=== PATIENT | male | born 1945 | race Caucasian/White ===

== ENCOUNTER → 2016-12-28 | Day surgery (SDC) | payer MEDICARE, OTHER ==
[~2016-12-28] MED LIST: ASPI81TA82 PO; BUPIVACAINE HCL PF 0.75% 10 ML VIAL ONE; LIDOCAINE 1%/EPINEPHrine 1:100,000 SOLN 20 ML VIAL ONE; PRED20 PO; TRIAMCINOLONE ACETONIDE 40 MG/ML VIAL ONE; VIBR100C PO
--- NOTE | 2016-12-28 15:53 | RADRPT ---
EXAM DATE/TIME: 12/28/2016 14:38 INDICATIONS : Sciatica. ACCESS LEVEL: LEFT Piriformis muscle MEDICATION(S): 1.) 30 mg trimcinolone (Kenalog) IM 2.) <<4 ml bupivacaine (Marcaine) IM DEVICE(S): 1.) 22 gauge Spinal needle MEDICAL HISTORY : Carcinoma, prostate. SURGICAL HISTORY : Inguinal hernia repair. Prostatectomy. ENCOUNTER: Initial ACUITY: 1 day PAIN SCORE: 6/10 LOCATION: Left pelvis PROCEDURE : CT guided steroid injection. The risks, benefits and alternatives to the procedure were explained and verbal and written consent w as obtained. The site was prepped in sterile fashion. Full sterile technique was used, including ca p, mask, sterile gloves and gown and a large sterile sheet. Hand hygiene and 2% chlorhexidine and/or betadine/alcohol prep was utilized per protocol for cutaneous antisepsis. The skin and subcutaneous tissues were infiltrated with local anesthetic solution. Using automated exposure control and adjus tment of the mA and/or kV according to patient size, radiation dose was kept as low as reasonably ach ievable to obtain optimal diagnostic quality images. Under CT guidance 20 gauge was placed down to the piriformis and the mixture of Kenalog and Marcaine were injected the piriformis. The patient was monitored for 20 minutes post procedure and left with excellent symptomatic improvem ent. CONCLUSION: Uncomplicated CT guided steroid injection as above. Ramiro Camargo MD FACR on December 28, 2016 at 15:48 Board Certified Radiologist. This report was verified electronically.
== END | disposition home or self-care (01) ==
LOC: HRAD 13:40
PROVIDERS: ATTEND Orthopaedic Surgery Orthopaedic Surgery of the Spine
DX: M54.32 Sciatica, left side (principal); Z85.46 Personal history of malignant neoplasm of prostate
CPT/HCPCS: 77012; 96372; J3301

== ENCOUNTER → 2017-03-15 | Day surgery (SDC) | payer MEDICARE, OTHER ==
[~2017-03-15] MED LIST changes: -LIDOCAINE 1%/EPINEPHrine 1:100,000 SOLN 20 ML VIAL ONE
--- NOTE | 2017-03-15 16:15 | RADRPT ---
EXAM DATE/TIME: 03/15/2017 14:40 INDICATIONS : Left piriformis injection. ACCESS LEVEL: LeftPiriformis muscle DEVICE(S): 1.) 25 gauge Spinal needle MEDICAL HISTORY : Carcinoma, prostate. SURGICAL HISTORY : Hernia repair. ENCOUNTER: Initial ACUITY: 1 day PAIN SCORE: 0/10 LOCATION: Left pelvis PROCEDURE : CT guided steroid injection. The risks, benefits and alternatives to the procedure were explained and verbal and written consent w as obtained. The site was prepped in sterile fashion. Full sterile technique was used, including ca p, mask, sterile gloves and gown and a large sterile sheet. Hand hygiene and 2% chlorhexidine and/or betadine/alcohol prep was utilized per protocol for cutaneous antisepsis. The skin and subcutaneous tissues were infiltrated with local anesthetic solution. Using automated exposure control and adjus tment of the mA and/or kV according to patient size, radiation dose was kept as low as reasonably ach ievable to obtain optimal diagnostic quality images. Appropriate area for injection was localized under CT guidance. The prescribed needle was placed nichole n through the piriformis and a mixture of the prescribed dosage was instilled in and around the sciat ic nerve and piriformis. 20 minutes later the patient had reasonable symptomatic relief. The patient was monitored for 20 minutes post procedure and left with reasonable symptomatic improvem ent. CONCLUSION: Uncomplicated CT guided steroid injection of the left piriformis. The muscle would appear to be hype rtrophied. Dotox may be a viable option. Ramiro Camargo MD FACR on March 15, 2017 at 16:11 Board Certified Radiologist. This report was verified electronically.
== END | disposition home or self-care (01) ==
LOC: HRAD 13:51
PROVIDERS: ATTEND Orthopaedic Surgery Orthopaedic Surgery of the Spine
DX: M54.32 Sciatica, left side (principal); Z85.46 Personal history of malignant neoplasm of prostate
CPT/HCPCS: 77012; J3301